=== PATIENT | female | born 1935 | race Caucasian/White ===

== ENCOUNTER → 2016-08-08 | Outpatient (CLI) | payer MEDICARE | END | disposition home or self-care (01) | LOC: PCVCCLINIC 11:43 | PROVIDERS: ATTEND Internal Medicine Cardiovascular Disease | DX: I25.10 Atherosclerotic heart disease of native coronary artery without angina pectoris (principal); E78.00 Pure hypercholesterolemia, unspecified; I10 Essential (primary) hypertension; E05.00 Thyrotoxicosis with diffuse goiter without thyrotoxic crisis or storm; M15.0 Primary generalized (osteo)arthritis; I44.7 Left bundle-branch block, unspecified; I34.1 Nonrheumatic mitral (valve) prolapse; I65.23 Occlusion and stenosis of bilateral carotid arteries; Z88.0 Allergy status to penicillin; Z88.8 Allergy status to other drugs, medicaments and biological substances; Z88.1 Allergy status to other antibiotic agents; Z79.82 Long term (current) use of aspirin; Z95.5 Presence of coronary angioplasty implant and graft; Z87.891 Personal history of nicotine dependence; Z90.710 Acquired absence of both cervix and uterus; Z90.12 Acquired absence of left breast and nipple | CPT/HCPCS: 93005; G0463 ==

== ENCOUNTER → 2017-02-20 | Outpatient (CLI) | payer MEDICARE | END | disposition home or self-care (01) | LOC: PCVCCLINIC 10:20 | PROVIDERS: ATTEND Internal Medicine Cardiovascular Disease | DX: I25.10 Atherosclerotic heart disease of native coronary artery without angina pectoris (principal); I10 Essential (primary) hypertension; E78.00 Pure hypercholesterolemia, unspecified; I65.23 Occlusion and stenosis of bilateral carotid arteries; I34.1 Nonrheumatic mitral (valve) prolapse; M19.90 Unspecified osteoarthritis, unspecified site; E05.00 Thyrotoxicosis with diffuse goiter without thyrotoxic crisis or storm; H35.30 Unspecified macular degeneration; R94.31 Abnormal electrocardiogram [ECG] [EKG]; I44.7 Left bundle-branch block, unspecified; Z87.891 Personal history of nicotine dependence; Z79.82 Long term (current) use of aspirin; Z79.899 Other long term (current) drug therapy | CPT/HCPCS: 80061; 93005; G0463 ==

== ENCOUNTER → 2018-05-22 | Outpatient (CLI) | payer MEDICARE ==
--- NOTE | 2018-05-22 16:17 | PCVCIMAG ---
APPROVED REPORT Study performed: 05/22/2018 14:35:21 EXAM: Comprehensive 2D, Doppler, and color-flow Echocardiogram Patient Location: Echo lab Room #: 2Status: routine BSA: 1.88 HR: 66 bpmBP: 152/68 mmHg Rhythm: NSR Other Information Study Quality: Adequate Risk Factors: Cardiac Risk Factors: HTN, Hyperlipidemia Indications Abnormal ECG Mitral Valve Prolapse Dyspnea CAD Hypertension/HDD 2D Dimensions IVSd: 8.99 (7-11mm)LVOT Diam: 20.68 (18-24mm) LVDd: 55.99 mm PWd: 7.98 (7-11mm)Ascending Ao: 30.02 (22-36mm) LVDs: 40.51 (25-40mm) Left Atrium: 38.12 (27-40mm) Aortic Root: 27.16 mm LV Single Plane 4CH: 35.22 % LV Single Plane 2CH: 49.17 % Biplane EF: 42.9 % Volumes Left Atrial Volume (Systole) Single Plane 4CH: 70.26 mLSingle Plane 2CH: 55.12 mL Biplane LA Volume: 63.00 mLLA ESV Index: 34.00 mL/m2 Aortic Valve AoV Peak Jhon.: 1.12 m/s AO Peak Gr.: 5.06 mmHgLVOT Max P.90 mmHg LVOT Max V: 0.77 m/s JULIUS Vmax: 2.30 cm2 Mitral Valve E/A Ratio: 0.6 MV Decel. Time: 239.60 ms MV E Max Jhon.: 0.81 m/s MV A Jhon.: 1.31 m/s IVRT: 76.12 ms Pulmonary Valve PV Peak Jhon.: 1.33 m/sPV Peak Gr.: 7.05 mmHg Pulmonary Vein P Vein S: 0.49 m/sP Vein A: 0.37 m/s P Vein D: 0.27 m/sP Vein A Dur.: 152.2 msec P Vein S/D Ratio: 1.81 Tricuspid Valve TR Peak Jhon.: 2.79 m/s TR Peak Gr.: 31.04 mmHg TV Vmax: 0.60 m/sPA Pressure: 38.00 mmHg Left Ventricle The left ventricle is normal size. There is normal LV segmental wall motion. There is normal left ventricular wall thickness. Left ventricular systolic function is mildly decreased.small area inf base is hypo LVEF is 45-50%. Grade I - abnormal relaxation pattern. Right Ventricle The right ventricle is normal size. The right ventricular systolic function is normal. Atria The left atrium size is normal. The right atrium size is normal. Aortic Valve Aortic valve is trileaflet. Mild aortic valve sclerosis with normal leaflet excursion. No aortic regurgitation is present. There is no aortic valvular stenosis. Mitral Valve Mitral valve leaflets open well. Mild mitral regurgitation. No evidence of mitral valve stenosis. Mild prolapse of the anterior mitral valve leaflet. Tricuspid Valve The tricuspid valve is normal in structure. Trace tricuspid regurgitation with a PA pressure of 38 mmHg. Mild pulmonary hypertension. Pulmonic Valve The pulmonary valve is normal in structure. Trace pulmonic regurgitation. Great Vessels The aortic root is normal in size. The ascending aorta is normal in size. Aortic arch is normal in caliber. IVC is normal in size and collapses >50% with inspiration. Pericardium There is no pericardial effusion. There is no pleural effusion. <Conclusion> The left ventricle is normal size. Left ventricular systolic function is mildly decreased.small area inf base is hypo LVEF is 45-50%. Grade I - abnormal relaxation pattern. The left atrium size is normal. Aortic valve is trileaflet. Mild aortic valve sclerosis with normal leaflet excursion. There is no aortic valvular stenosis. Mild mitral regurgitation. Trace tricuspid regurgitation with a PA pressure of 38 mmHg. Mild pulmonary hypertension. The aortic root is normal in size. There is no pericardial effusion.
== END | disposition home or self-care (01) ==
LOC: PCVCIMAG 14:12
PROVIDERS: ATTEND Internal Medicine Cardiovascular Disease
DX: I34.1 Nonrheumatic mitral (valve) prolapse (principal); I34.0 Nonrheumatic mitral (valve) insufficiency; I35.0 Nonrheumatic aortic (valve) stenosis; I25.10 Atherosclerotic heart disease of native coronary artery without angina pectoris; R06.02 Shortness of breath; I10 Essential (primary) hypertension; E78.5 Hyperlipidemia, unspecified; E05.00 Thyrotoxicosis with diffuse goiter without thyrotoxic crisis or storm; R94.31 Abnormal electrocardiogram [ECG] [EKG]; Z79.82 Long term (current) use of aspirin; Z87.891 Personal history of nicotine dependence
CPT/HCPCS: 36415; 80061; 93005; 93306; G0463

== ENCOUNTER → 2018-10-16 | Outpatient (CLI) | payer MEDICARE | END | disposition home or self-care (01) | LOC: PCVCCLINIC 11:30 | PROVIDERS: ATTEND Internal Medicine Cardiovascular Disease | DX: I25.10 Atherosclerotic heart disease of native coronary artery without angina pectoris (principal); I10 Essential (primary) hypertension; I08.0 Rheumatic disorders of both mitral and aortic valves; E78.00 Pure hypercholesterolemia, unspecified; E78.5 Hyperlipidemia, unspecified; Z79.82 Long term (current) use of aspirin; Z87.891 Personal history of nicotine dependence | CPT/HCPCS: 36415; 80061; 93005; G0463 ==